=== PATIENT | female | born 1990 | race Caucasian/White ===

== ENCOUNTER 2021-01-02 20:58 | Emergency (ER) | payer MEDICAID ==
--- NOTE | 2021-01-02 21:26 | EDM.PDOC ---
ED HPI GENERAL MEDICAL PROBLEM - General Chief Complaint: Lower Extremity Injury/Pain Stated Complaint: LEFT ANKLE PAIN Time Seen by Provider: 01/02/21 21:05 Source of Information: Reports: Patient, Old Records, RN History Limitations: Reports: No Limitations - History of Present Illness INITIAL COMMENTS - FREE TEXT/NARRATIVE: 30 yo female was seen in the clinic 5 days ago for L ankle area pain that was not associated with injury. She was prescribed some medications for the problem, no testing was done. Says she is starting a new job at [employer] tomorrow and as is she doesn't think she could do the job. Wants a splint or boot for her ankle to allow her to work. 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: Reports: Other (see below) (Lyrica, magnesium) Left Ankle Pain Score (Numeric/FACES): 5 - Related Data Allergies Allergy/AdvReac Type Severity Reaction Status Date / Time diclofenac [Diclofenac] Allergy Headache Verified 09/20/14 20:44 ipratropium bromide Allergy Shortness Verified 09/20/14 20:44 [From DuoNeb] of Breath tramadol Allergy Hives Verified 09/20/14 20:44 Home Meds: Home Meds Montelukast [Singulair] 10 mg PO DAILY 03/03/13 [History] Ketoprofen 75 mg PO TID #10 cap 08/20/13 [Rx] tiZANidine [Zanaflex] 2 mg PO DAILY 08/20/13 [History] Albuterol Sulfate [Albuterol Sulfate HFA] 8.5 gm IH Q4HWA PRN #0 10/13/13 [Rx] hydrOXYzine pamoate [Vistaril] 25 mg PO Q6H PRN 10/13/13 [History] Codeine Phosphate/Guaifenesin [Guaiatussin AC Liquid] 10 mg PO DAILY 09/20/14 [History] Omeprazole [Prilosec] 20 mg PO DAILY 09/20/14 [History] Sucralfate [Carafate] 1 gm PO DAILY 09/20/14 [History] Past Medical History - Past Health History Medical/Surgical History: Denies Medical/Surgical History Review of Systems - Review of Systems Review Of Systems: See Below Constitutional: Reports: No Symptoms Musculoskeletal: Reports: Joint Pain (pain in the L lower leg and ankle areas. ). Denies: Joint Swelling Skin: Reports: No Symptoms Neurological: Reports: No Symptoms ED EXAM, GENERAL - Physical Exam Exam: See Below Exam Limited By: No Limitations General Appearance: Alert, WD/WN, No Apparent Distress, Obese Extremities: Normal Inspection, Normal Range of Motion, Non-Tender, No Pedal Edema, Other (walks with a limp, is bilaterally flat footed with valgus knees). No: Pedal Edema, Brian's Sign, Limited Range of Motion, Increased Warmth, Mottled, Redness Neurological: Alert, Oriented, CN II-XII Intact, Normal Cognition, No Motor/Sensory Deficits Psychiatric: Normal Affect, Normal Mood Skin Exam: Warm, Dry, Intact, Normal Color, No Rash Course - Vital Signs Last Recorded V/S: Last Vital Signs Temp 36.9 C 01/02/21 21:00 Pulse 72 01/02/21 21:00 Resp 20 01/02/21 21:00 BP 100/50 L 01/02/21 21:00 Pulse Ox 95 01/02/21 21:00 - Re-Assessments/Exams Free Text/Narrative Re-Assessment/Exam: 01/02/21 21:31 Fitted her with a cam walker type boot, she thinks it helps 01/02/21 22:00 Departure - Departure Time of Disposition: 22:00 Disposition: Home, Self-Care 01 Condition: Good Clinical Impression: Ankle pain Qualifiers: Chronicity: unspecified Laterality: left Qualified Code(s): M25.572 - Pain in left ankle and joints of left foot - Discharge Information *PRESCRIPTION DRUG MONITORING PROGRAM REVIEWED*: Not Applicable *COPY OF PRESCRIPTION DRUG MONITORING REPORT IN PATIENT MINDY: Not Applicable Instructions: Ankle Pain Forms: ED Department Discharge Additional Instructions: Wear the brace when walking. Follow up with your provider for further work up, you may need referral to PT or orthopedics. Sepsis Event Note (ED) - Focused Exam Vital Signs: Vital Signs Temp Pulse Resp BP Pulse Ox 09/12/21 21:00 36.9 C 72 20 100/50 L 95
[2021-01-02 21:28] VITALS: PULSE 72
[2021-01-02 22:33] VITALS: BP 100/54
== END 2021-01-02 22:10 | disposition home or self-care (01) ==
LOC: FB.ED 20:58
DX: M25.572 Pain in left ankle and joints of left foot (principal); Z88.8 Allergy status to other drugs, medicaments and biological substances; Z88.5 Allergy status to narcotic agent; Z79.899 Other long term (current) drug therapy
CPT/HCPCS: 99283

== ENCOUNTER 2022-03-29 22:38 | Emergency (ER) | payer OTHER, MEDICAID ==
[2022-03-29] MEDS ORDERED: Tetracaine HCl/PF 0.5% 4 ML Bottle EYERT ONE (23:26)
[2022-03-30 00:42] VITALS: BP 135/92; PULSE 55
== END 2022-03-30 00:36 | disposition home or self-care (01) ==
LOC: FB.ED 22:38
DX: S09.93XA Unspecified injury of face, initial encounter (principal); K21.9 Gastro-esophageal reflux disease without esophagitis; E66.9 Obesity, unspecified; Z88.5 Allergy status to narcotic agent; Z88.8 Allergy status to other drugs, medicaments and biological substances; Z86.16 Personal history of COVID-19; Z68.42 Body mass index [BMI] 45.0-49.9, adult; X10.1XXA Contact with hot food, initial encounter
CPT/HCPCS: 99283

== ENCOUNTER 2024-03-06 14:17 | Emergency (ER) | payer BC, OTHER ==
[2024-03-06 14:42] VITALS: BP 158/101; PULSE 116
[2024-03-06 15:02] LABS: BLOOD UREA NITROGEN,BUN 10 mg/dL (7-18); BUN/CREATININE RATIO 9.1 (9-20); CALCIUM 9.4 mg/dL (8.6-10.2); CARBON DIOXIDE,CO2 27 mmol/L (21-32); CHLORIDE,CL 108 mmol/L (100-110); CREATININE 1.1 mg/dL (0.55-1.02); ESTIMATED GFR 68 mL/min (>60); GLUCOSE RANDOM 110 mg/dL (80-116); POTASSIUM,K 4.2 mmol/L (3.5-5.3); SODIUM,NA 144 mmol/L (135-145)
[2024-03-06 15:08] LABS: ALANINE AMINOTRANSFERASE,ALT 32 U/L (12-36); ALBUMIN 3.5 g/dL (3.5-5.2); ALKALINE PHOSPHATASE 102 IU/L (56-112); ASPARTATE AMNIOTRANSFERASE,AST 16 IU/L (5-25); BILIRUBIN TOTAL 0.8 mg/dL (0.1-1.3); PROTEIN TOTAL,TP 7.2 g/dL (6.0-8.0)
[2024-03-06 15:28] LABS: BASOPHILS PERCENT AUTO 0.5 % (0.2-1.5); EOSINOPHILS ABSOLUTE AUTO 0.2 x10-3/uL (0.0-0.8); EOSINOPHILS PERCENT AUTO 2.4 % (0.6-8.1); HEMATOCRIT 43.2 % (34.2-48.2); HEMOGLOBIN 14.6 g/dL (11.4-15.5); LYMPHOCYTES ABSOLUTE AUTO 2.6 x10-3/uL (1.0-4.4); LYMPHOCYTES PERCENT AUTO 29.1 % (18.4-52.1); MEAN CORPUSCULAR HEMOGLOBIN 29.2 pg (23.9-33.9); MEAN CORPUSCULAR HGB CONC 33.7 g/dL (31.9-34.8); MEAN CORPUSCULAR VOLUME 86.5 fL (76.7-100.5); MEAN PLATELET VOLUME 7.9 fL (7.1-12.4); MONOCYTES ABSOLUTE AUTO 0.5 x10-3/uL (0.3-1.0); MONOCYTES PERCENT AUTO 5.4 % (4.4-15.7); NEUTROPHILS ABSOLUTE AUTO 5.7 x10-3/uL (1.5-6.3); NEUTROPHILS PERCENT AUTO 62.6 % (30.8-76.2); PLATELET COUNT,PLT 243 x10(3)uL (151-488); RED CELL DISTRIBUTION WIDTH 13.4 % (12.3-16.5); WHITE BLOOD CELL COUNT,WBC 9.1 x10-3/uL (3.0-10.3)
[2024-03-06 15:35] LABS: TROPONIN I 341.2 pg/mL (4.0-60.3)
[2024-03-06 15:47] LABS: INR 0.95 (1.00-1.24); PROTHROMBIN TIME 9.9 sec (9.0-11.1)
[2024-03-06 15:51] LABS: PTT,PARTIAL THROMBOPLSTIN TIME 24.7 SECONDS (24.4-33.2)
[2024-03-06] MEDS ORDERED: Sodium Chloride 0.9% 10 ML Syringe FLUSH PRN (17:43)
[2024-03-06 17:57] LABS: D-DIMER QUANTITATIVE 9.78 mg/LFEU (0.0-0.59)
== END 2024-03-06 18:39 ==
LOC: FB.ED 14:17
DX: R00.2 Palpitations (principal); R79.1 Abnormal coagulation profile; M79.7 Fibromyalgia; R79.89 Other specified abnormal findings of blood chemistry; E66.9 Obesity, unspecified; K21.9 Gastro-esophageal reflux disease without esophagitis; J45.909 Unspecified asthma, uncomplicated; Z79.899 Other long term (current) drug therapy; Z88.5 Allergy status to narcotic agent; Z88.8 Allergy status to other drugs, medicaments and biological substances; Z68.41 Body mass index [BMI] 40.0-44.9, adult
CPT/HCPCS: 36415; 71045; 80053; 83880; 84443; 84484; 85025; 85379; 85610; 85730; 93005; 93010; 99285

== ENCOUNTER 2024-04-08 19:35 | Emergency (ER) | payer BC ==
[2024-04-08] MEDS: LORazepam 1 MG Tab PO ONE (20:43)
[2024-04-08 20:55] LABS: BASOPHILS ABSOLUTE AUTO 0.1 x10-3/uL (0.0-0.1); BASOPHILS PERCENT AUTO 0.9 % (0.2-1.5); EOSINOPHILS ABSOLUTE AUTO 0.1 x10-3/uL (0.0-0.8); EOSINOPHILS PERCENT AUTO 1.8 % (0.6-8.1); HEMOGLOBIN 14.7 g/dL (11.4-15.5); LYMPHOCYTES PERCENT AUTO 36.8 % (18.4-52.1); MEAN CORPUSCULAR HEMOGLOBIN 29.3 pg (23.9-33.9); MEAN CORPUSCULAR HGB CONC 33.5 g/dL (31.9-34.8); MEAN CORPUSCULAR VOLUME 87.5 fL (76.7-100.5); MEAN PLATELET VOLUME 7.6 fL (7.1-12.4); MONOCYTES ABSOLUTE AUTO 0.5 x10-3/uL (0.3-1.0); MONOCYTES PERCENT AUTO 5.9 % (4.4-15.7); NEUTROPHILS ABSOLUTE AUTO 4.4 x10-3/uL (1.5-6.3); NEUTROPHILS PERCENT AUTO 54.6 % (30.8-76.2); PLATELET COUNT,PLT 307 x10(3)uL (151-488); RED BLOOD CELL COUNT 5.02 x10(6)uL (3.60-5.20); RED CELL DISTRIBUTION WIDTH 13.4 % (12.3-16.5); WHITE BLOOD CELL COUNT,WBC 8.1 x10-3/uL (3.0-10.3)
[2024-04-08 21:00] LABS: BLOOD UREA NITROGEN,BUN 18 mg/dL (7-18); BUN/CREATININE RATIO 16.4 (9-20); CALCIUM 9.1 mg/dL (8.6-10.2); CARBON DIOXIDE,CO2 27 mmol/L (21-32); CHLORIDE,CL 105 mmol/L (100-110); CREATININE 1.1 mg/dL (0.55-1.02); ESTIMATED GFR 68 mL/min (>60); GLUCOSE RANDOM 109 mg/dL (80-116); SODIUM,NA 144 mmol/L (135-145)
[2024-04-08 21:06] LABS: A/G RATIO 1.2; ALANINE AMINOTRANSFERASE,ALT 57 U/L (12-36); ALBUMIN 3.9 g/dL (3.5-5.2); ALKALINE PHOSPHATASE 95 IU/L (56-112); ASPARTATE AMNIOTRANSFERASE,AST 28 IU/L (5-25); BILIRUBIN TOTAL 0.3 mg/dL (0.1-1.3); PROTEIN TOTAL,TP 7.1 g/dL (6.0-8.0)
[2024-04-08 21:08] LABS: C-REACTIVE PROTEIN 0.59 mg/dL (<0.50); TROPONIN I < 4.0 pg/mL (4.0-60.3)
[2024-04-08 22:12] VITALS: BP 111/73; PULSE 88
== END 2024-04-08 22:11 | disposition home or self-care (01) ==
LOC: FB.ED 19:35
DX: F41.0 Panic disorder [episodic paroxysmal anxiety] (principal); K76.0 Fatty (change of) liver, not elsewhere classified; J45.909 Unspecified asthma, uncomplicated; E66.9 Obesity, unspecified; Z86.16 Personal history of COVID-19; Z88.5 Allergy status to narcotic agent; Z88.8 Allergy status to other drugs, medicaments and biological substances; Z79.51 Long term (current) use of inhaled steroids; Z79.899 Other long term (current) drug therapy; Z68.41 Body mass index [BMI] 40.0-44.9, adult
CPT/HCPCS: 36415; 80053; 84484; 85025; 85379; 86140; 93005; 99285; A9270